=== PATIENT | male | born 1960 | race African-American/Black ===

== ENCOUNTER 2016-06-26 18:15 | Inpatient (IN) | payer OTHER ==
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
[2016-06-26 19:17] VITALS: BMI 19.8
[2016-06-26] MEDS ORDERED: MAG HYDROX/AL HYDROX/SIMETH 30 ML UNIT-DOSE CUP PO PRN (19:22)
[2016-06-26] MEDS ORDERED: MENTHOL/PHENOL 1 EACH UD MM PRN (19:22)
[2016-06-26] MEDS ORDERED: hydrOXYzine PAMOATE 50 MG CAPSULE (FP) PO PRN (19:22)
[2016-06-26] MEDS ORDERED: LOPERAMIDE HCL 2 MG CAPSULE PO PRN (19:22)
[2016-06-26] MEDS ORDERED: chlordiazePOXIDE HCL 25 MG CAPSULE PO ONE (19:22)
[2016-06-26] MEDS ORDERED: MAGNESIUM CITRATE 300 ML BOTTLE PO PRN (19:22)
[2016-06-26] MEDS ORDERED: guaiFENesin/D-METHORPHAN HB 10 ML UNIT-DOSE CUPS PO PRN (19:22)
[2016-06-26] MEDS ORDERED: ACETAMINOPHEN 325 MG TABLET (FP) PO PRN (19:22)
[2016-06-26] MEDS ORDERED: P-EPHED 60MG/TRIPROLIDI 2.5MG TABLET PO PRN (19:22)
[2016-06-26] MEDS ORDERED: MAGNESIUM HYDROX 2400MG/30ML ORAL SUSPENSION 30 ML CUP PO PRN (19:22)
[2016-06-26] MEDS ORDERED: chlordiazePOXIDE HCL 25 MG CAPSULE PO PRN (19:22)
[2016-06-26] MEDS ORDERED: IBUPROFEN 400 MG TABLET (FP) PO PRN (19:22)
[2016-06-26 22:43] LABS: URINE APPEARANCE CLEAR; URINE BILIRUBIN NEGATIVE (NEGATIVE); URINE BLOOD NEGATIVE (NEGATIVE); URINE COLOR YELLOW; URINE GLUCOSE (UA) NEGATIVE (NEGATIVE); URINE KETONE TRACE (NEGATIVE); URINE LEUK ESTERASE NEGATIVE (NEGATIVE); URINE NITRITE NEGATIVE (NEGATIVE); URINE PROTEIN NEGATIVE (NEGATIVE); URINE UROBILINOGEN 4.0 E.U/dl E.U./dl (0.2-1.0)
[2016-06-27] MEDS: THIAMINE HCL 100 MG TABLET (FP) PO SCH ×2 (00:01→22:53)
[2016-06-27] MEDS: chlordiazePOXIDE HCL 25 MG CAPSULE PO SCH ×5 (00:03→22:53)
[2016-06-27] MEDS: PRENATAL VITAMINS W/ FOLIC ACID TABLET (FP) PO SCH (10:11)
[2016-06-27 10:28] LABS: ALBUMIN 3.5 g/dl (3.4-5.0); ANION GAP 11 (8-16); CALCIUM 8.6 mg/dL (8.5-10.1); CO2 27 mmol/L (21-32); GLUCOSE,RANDOM 79 mg/dL (74-106)
[2016-06-27 10:29] LABS: MCH 27.2 pg (25.7-33.7); MCHC 32.4 g/dl (32.0-35.9); MEAN CELL VOLUME 83.8 fl (80-96); MEAN PLT VOLUME 9.7 fl (7.5-11.1); PLATELET COUNT 192 K/MM3 (134-434); RDW 15.6 % (11.9-15.9); WHITE BLOOD COUNT 4.3 K/mm3 (4.0-10.0)
[2016-06-27 10:33] LABS: ALK PHOS 44 U/L (45-117); BILIRUBIN,TOTAL 0.5 mg/dL (0.2-1.0); CREATININE 0.9 mg/dL (0.7-1.3); SGOT/AST 25 U/L (15-37); SGPT/ALT 25 U/L (12-78); TOT PROT 6.3 g/dl (6.4-8.2)
--- NOTE | 2016-06-27 12:41 | PN ---
S CIWA - CIWA Score Nausea/Vomitin Muscle Tremors: 3 Anxiety: 3 Agitation: 3 Paroxysmal Sweats: 1-Minimal Palms Moist Orientation: 0-Oriented Tacttile Disturbances: 1-Very Mild Itch/Numbness Auditory Disturbances: 1-Very Mild Visual Disturbances: 1-Very Mild Sensitivity Headache: 2-Mild CIWA-Ar Total Score: 18 BHS Progress Note (SOAP) Subjective: ALERT,IRRITABLE,ANXIOUS,INTERRUPTED SLEEP,PAIN IN THE BODY AND BACK Objective: 06/27/16 12:40 Vital Signs Temperature 97.3 F L 06/27/16 10:49 Pulse Rate 91 H 06/27/16 10:49 Respiratory Rate 16 06/27/16 10:49 Blood Pressure 106/77 06/27/16 10:49 O2 Sat by Pulse Oximetry (%) EKG NSR NO CHEST PAIN,NO SOB,NO DIZZINESS Laboratory Last Values WBC 4.3 K/mm3 (4.0-10.0) 06/27/16 07:45 RBC 4.39 M/mm3 (4.00-5.60) 06/27/16 07:45 Hgb 11.9 GM/dL (11.7-16.9) 06/27/16 07:45 Hct 36.8 % (35.4-49) 06/27/16 07:45 MCV 83.8 fl (80-96) 06/27/16 07:45 MCHC 32.4 g/dl (32.0-35.9) 06/27/16 07:45 RDW 15.6 % (11.9-15.9) 06/27/16 07:45 Plt Count 192 K/MM3 (134-434) 06/27/16 07:45 MPV 9.7 fl (7.5-11.1) 06/27/16 07:45 Sodium 143 mmol/L (136-145) 06/27/16 07:45 Potassium 3.7 mmol/L (3.5-5.1) 06/27/16 07:45 Chloride 105 mmol/L (98-107) 06/27/16 07:45 Carbon Dioxide 27 mmol/L (21-32) 06/27/16 07:45 Anion Gap 11 (8-16) 06/27/16 07:45 BUN 15 mg/dL (7-18) 06/27/16 07:45 Creatinine 0.9 mg/dL (0.7-1.3) 06/27/16 07:45 Creat Clearance w eGFR > 60 (>60) 06/27/16 07:45 Random Glucose 79 mg/dL (74-106) 06/27/16 07:45 Calcium 8.6 mg/dL (8.5-10.1) 06/27/16 07:45 Total Bilirubin 0.5 mg/dL (0.2-1.0) 06/27/16 07:45 AST 25 U/L (15-37) 06/27/16 07:45 ALT 25 U/L (12-78) 06/27/16 07:45 Alkaline Phosphatase 44 U/L (45-117) L 06/27/16 07:45 Total Protein 6.3 g/dl (6.4-8.2) L 06/27/16 07:45 Albumin 3.5 g/dl (3.4-5.0) 06/27/16 07:45 Urine Color Yellow 06/26/16 22:30 Urine Appearance Clear 06/26/16 22:30 Urine pH 5.0 (5.0-8.0) 06/26/16 22:30 Ur Specific [place] 1.032 (1.001-1.035) 06/26/16 22:30 Urine Protein Negative (NEGATIVE) 06/26/16 22:30 Urine Glucose (UA) Negative (NEGATIVE) 06/26/16 22:30 Urine Ketones Trace (NEGATIVE) H 06/26/16 22:30 Urine Blood Negative (NEGATIVE) 06/26/16 22:30 Urine Nitrite Negative (NEGATIVE) 06/26/16 22:30 Urine Bilirubin Negative (NEGATIVE) 06/26/16 22:30 Urine Urobilinogen 4.0 e.u/dl E.U./dl (0.2-1.0) 06/26/16 22:30 Ur Leukocyte Esterase Negative (NEGATIVE) 06/26/16 22:30 RPR Titer Nonreactive (NONREACTIVE) 06/27/16 07:45 Assessment: 06/27/16 12:41 WITHDRAWAL SYMPTOM Plan: CONTINUE DETOX
[2016-06-27] MEDS: CYCLOBENZAPRINE HCL 10 MG TABLET (FP) PO PRN (22:53)
[2016-06-27] MEDS: diphenhydrAMINE HCL 50 MG CAPSULE PO PRN (22:53)
[2016-06-28] MEDS: chlordiazePOXIDE HCL 25 MG CAPSULE PO SCH ×3 (06:37→17:34)
[2016-06-28] MEDS: PRENATAL VITAMINS W/ FOLIC ACID TABLET (FP) PO SCH (10:41)
--- NOTE | 2016-06-28 12:16 | PN ---
S CIWA - CIWA Score Nausea/Vomitin Muscle Tremors: 3 Anxiety: 3 Agitation: 2 Paroxysmal Sweats: 3 Orientation: 0-Oriented Tacttile Disturbances: 2-Mild Itch/Numbness/Burn Auditory Disturbances: 0-None Visual Disturbances: 0-None Headache: 0-None Present CIWA-Ar Total Score: 15 S Progress Note (SOAP) Subjective: interrupted sleep, sweats, shakes, lbp, leg pains Objective: 06/28/16 12:15 Vital Signs Temperature 98.4 F 06/28/16 11:23 Pulse Rate 74 06/28/16 11:23 Respiratory Rate 16 06/28/16 11:23 Blood Pressure 105/66 06/28/16 11:23 O2 Sat by Pulse Oximetry (%) Laboratory Tests 06/26/16 06/27/16 06/27/16 22:30 07:45 07:45 WBC 4.3 RBC 4.39 Hgb 11.9 Hct 36.8 MCV 83.8 MCHC 32.4 RDW 15.6 Plt Count 192 MPV 9.7 Sodium 143 Potassium 3.7 Chloride 105 Carbon Dioxide 27 Anion Gap 11 BUN 15 Creatinine 0.9 Creat Clearance w eGFR > 60 Random Glucose 79 Calcium 8.6 Total Bilirubin 0.5 AST 25 ALT 25 Alkaline Phosphatase 44 L Total Protein 6.3 L Albumin 3.5 Urine Color Yellow Urine Appearance Clear Urine pH 5.0 Ur Specific [place] 1.032 Urine Protein Negative Urine Glucose (UA) Negative Urine Ketones Trace H Urine Blood Negative Urine Nitrite Negative Urine Bilirubin Negative Urine Urobilinogen 4.0 e.u/dl Ur Leukocyte Esterase Negative RPR Titer 06/27/16 07:45 WBC RBC Hgb Hct MCV MCHC RDW Plt Count MPV Sodium Potassium Chloride Carbon Dioxide Anion Gap BUN Creatinine Creat Clearance w eGFR Random Glucose Calcium Total Bilirubin AST ALT Alkaline Phosphatase Total Protein Albumin Urine Color Urine Appearance Urine pH Ur Specific [place] Urine Protein Urine Glucose (UA) Urine Ketones Urine Blood Urine Nitrite Urine Bilirubin Urine Urobilinogen Ur Leukocyte Esterase RPR Titer Nonreactive pt aox3 in nad ambulating Assessment: 06/28/16 12:16 withdrawal sx;s Plan: cont. detox increase fluids motrin prn
--- NOTE | 2016-06-28 13:53 | CONSULT ---
[facility] Psychiatric Consult - Data Date of interview: 06/28/16 Admission source: [facility] Identifying data: Patient is approached for psychiatric interview.He refuses.Nursing staff is made aware.
[2016-06-28] MEDS: CYCLOBENZAPRINE HCL 10 MG TABLET (FP) PO PRN (23:09)
[2016-06-28] MEDS: THIAMINE HCL 100 MG TABLET (FP) PO SCH (23:09)
[2016-06-28] MEDS: chlordiazePOXIDE 5 MG CAPSULE PO SCH (23:09)
[2016-06-28] MEDS: diphenhydrAMINE HCL 50 MG CAPSULE PO PRN (23:09)
[2016-06-29] MEDS: chlordiazePOXIDE 5 MG CAPSULE PO SCH ×3 (05:30→17:11)
[2016-06-29] MEDS: CYCLOBENZAPRINE HCL 10 MG TABLET (FP) PO PRN ×2 (10:42→22:15)
[2016-06-29] MEDS: PRENATAL VITAMINS W/ FOLIC ACID TABLET (FP) PO SCH (10:42)
--- NOTE | 2016-06-29 11:35 | PN ---
BHS Progress Note (SOAP) Subjective: headache back pain Objective: 06/29/16 11:34 Vital Signs Temperature 96.4 F L 06/29/16 10:48 Pulse Rate 80 06/29/16 10:48 Respiratory Rate 18 06/29/16 10:48 Blood Pressure 120/75 06/29/16 10:48 O2 Sat by Pulse Oximetry (%) awake/alert ambulating no acute distress Assessment: 06/29/16 11:35 withdrawal sx Plan: continue detox increase fluids d/c in am
[2016-06-29] MEDS: THIAMINE HCL 100 MG TABLET (FP) PO SCH (22:15)
[2016-06-29] MEDS: chlordiazePOXIDE HCL 10 MG CAPSULE PO SCH (22:15)
[2016-06-29] MEDS: diphenhydrAMINE HCL 50 MG CAPSULE PO PRN (22:15)
--- NOTE | 2016-06-29 23:08 | EKG ---
Test Reason : Blood Pressure : / mmHG Vent. Rate : 071 BPM Atrial Rate : 071 BPM P-R Int : 154 ms QRS Dur : 092 ms QT Int : 388 ms P-R-T Axes : 076 074 066 degrees QTc Int : 421 ms NORMAL SINUS RHYTHM POSSIBLE LEFT ATRIAL ENLARGEMENT BORDERLINE ECG NO PREVIOUS ECGS AVAILABLE Confirmed by TONY CRUZ, ONELIA ([id number]) on 06/29/2016 11:08:00 PM Referred By: Confirmed By:ONELIA JIMENEZ MD
[2016-06-30] MEDS: chlordiazePOXIDE HCL 10 MG CAPSULE PO SCH (05:56)
[2016-06-30 06:21] VITALS: BP 109/69; PULSE 84; TEMP 97.7
--- NOTE | 2016-06-30 09:04 | DS ---
[facility] Detox Discharge Summary Admission Date: 06/26/16 Discharge Date: 06/30/16 - History Present History: Alcohol Dependence, Cocaine Dependence, Opioid Dependence - Physical Exam Results Vital Signs: Vital Signs Temperature 97.7 F 06/30/16 06:00 Pulse Rate 84 06/30/16 06:00 Respiratory Rate 18 06/30/16 06:00 Blood Pressure 109/69 06/30/16 06:00 O2 Sat by Pulse Oximetry (%) - Treatment Hospital Course: Detox Protocol Followed, Detoxed Safely, Responded well, Discharged Condition Good - Medication Discharge Medications: Ambulatory Orders Tramadol HCl [Ultram] 50 mg PO BID 06/26/16 - Diagnosis (1) Anxiety and depression Current Visit: Yes Status: Chronic (2) Alcohol dependence with withdrawal, uncomplicated Current Visit: Yes Status: Chronic (3) Depression Current Visit: Yes Status: Chronic Qualifiers: Depression Type: unspecified Qualified Code(s): F32.9 - Major depressive disorder, single episode, unspecified (4) Opiate abuse, continuous Current Visit: Yes Status: Chronic (5) Chronic low back pain Current Visit: Yes Status: Chronic Qualifiers: Back pain laterality: bilateral Sciatica laterality: bilateral sciatica (6) Cocaine dependence Current Visit: Yes Status: Chronic Qualifiers: Substance use status: uncomplicated Qualified Code(s): F14.20 - Cocaine dependence, uncomplicated (7) Nicotine dependence Current Visit: Yes Status: Chronic Qualifiers: Nicotine product type: cigarettes Substance use status: uncomplicated Qualified Code(s): F17.210 - Nicotine dependence, cigarettes, uncomplicated - AMA Did Patient Leave Against Medical Advice: No
[2016-06-30] MEDS: PRENATAL VITAMINS W/ FOLIC ACID TABLET (FP) PO SCH (09:07)
== END 2016-06-30 09:12 | disposition home or self-care (01) | DRG 773 ==
LOC: YASAS 18:15 → Y6N 18:37
PROVIDERS: ADMIT Internal Medicine; ATTEND Internal Medicine Addiction Medicine
PROC: HZ2ZZZZ Detoxification Services for Substance Abuse Treatment (ICD-10-PCS; principal; 2016-06-26)
DX: F10.230 Alcohol dependence with withdrawal, uncomplicated (principal); F11.10 Opioid abuse, uncomplicated; F14.20 Cocaine dependence, uncomplicated; F17.210 Nicotine dependence, cigarettes, uncomplicated; F41.8 Other specified anxiety disorders; F32.9 Major depressive disorder, single episode, unspecified; M54.5 Low back pain; G89.29 Other chronic pain; G47.00 Insomnia, unspecified; R76.11 Nonspecific reaction to tuberculin skin test without active tuberculosis; Z86.69 Personal history of other diseases of the nervous system and sense organs
CPT/HCPCS: 36415; 80053; 81003; 85027; 86593; 93005; 93010

== ENCOUNTER 2017-03-29 11:53 | Inpatient (IN) | payer OTHER ==
[2017-03-29 13:29] VITALS: BMI 19.1
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
[2017-03-29] MEDS ORDERED: MAGNESIUM HYDROX 2400MG/30ML ORAL SUSPENSION 30 ML CUP PO PRN (15:24)
[2017-03-29] MEDS ORDERED: MAG HYDROX/AL HYDROX/SIMETH 30 ML UNIT-DOSE CUP PO PRN (15:24)
[2017-03-29] MEDS ORDERED: hydrOXYzine PAMOATE 50 MG CAPSULE (FP) PO PRN (15:24)
[2017-03-29] MEDS ORDERED: MAGNESIUM CITRATE 300 ML BOTTLE PO PRN (15:24)
[2017-03-29] MEDS ORDERED: MENTHOL/PHENOL 1 EACH UD MM PRN (15:24)
[2017-03-29] MEDS ORDERED: IBUPROFEN 400 MG TABLET (FP) PO PRN (15:24)
[2017-03-29] MEDS ORDERED: chlordiazePOXIDE HCL 25 MG CAPSULE PO PRN (15:24)
[2017-03-29] MEDS ORDERED: P-EPHED 60MG/TRIPROLIDI 2.5MG TABLET PO PRN (15:24)
[2017-03-29] MEDS ORDERED: ACETAMINOPHEN 325 MG TABLET (FP) PO PRN (15:24)
[2017-03-29] MEDS ORDERED: LOPERAMIDE HCL 2 MG CAPSULE PO PRN (15:24)
[2017-03-29] MEDS: chlordiazePOXIDE HCL 25 MG CAPSULE PO SCH ×2 (17:44→22:08)
[2017-03-29] MEDS: THIAMINE HCL 100 MG TABLET (FP) PO SCH (22:08)
[2017-03-29] MEDS: levETIRAcetam 500 MG TABLET (FP) PO SCH (22:08)
[2017-03-29] MEDS: CYCLOBENZAPRINE HCL 10 MG TABLET (FP) PO PRN (22:08)
[2017-03-29 23:23] LABS: URINE APPEARANCE TURBID; URINE BILIRUBIN NEGATIVE (NEGATIVE); URINE BLOOD NEGATIVE (NEGATIVE); URINE COLOR AMBER; URINE GLUCOSE (UA) NEGATIVE (NEGATIVE); URINE KETONE 2+ (NEGATIVE); URINE LEUK ESTERASE NEGATIVE (NEGATIVE); URINE NITRITE NEGATIVE (NEGATIVE)
[2017-03-29 23:33] LABS: URINE PROTEIN 2+ (NEGATIVE)
[2017-03-29 23:42] LABS: EPI CELLS RARE /HPF (FEW); URINE BACTERIA RARE /hpf (NONE SEEN); URINE MUCUS MANY
[2017-03-30] MEDS: chlordiazePOXIDE HCL 25 MG CAPSULE PO SCH ×4 (06:00→22:19)
--- NOTE | 2017-03-30 09:48 | EKG ---
Test Reason : Blood Pressure : / mmHG Vent. Rate : 095 BPM Atrial Rate : 095 BPM P-R Int : 136 ms QRS Dur : 076 ms QT Int : 340 ms P-R-T Axes : 079 073 054 degrees QTc Int : 427 ms NORMAL SINUS RHYTHM NORMAL ECG WHEN COMPARED WITH ECG OF 26-JUN-2016 20:29, NO SIGNIFICANT CHANGE WAS FOUND Confirmed by MD Ambrosio Edward ([id number]) on 03/30/2017 9:48:03 AM Referred By: Confirmed By:Hernán Ambrosio MD
[2017-03-30 09:49] LABS: CHLORIDE 101 mmol/L (98-107); POTASSIUM 3.9 mmol/L (3.5-5.1); SODIUM 137 mmol/L (136-145)
[2017-03-30 09:54] LABS: HEMATOCRIT 39.2 % (35.4-49); HEMOGLOBIN 12.5 GM/dL (11.7-16.9); MCH 26.8 pg (25.7-33.7); MEAN CELL VOLUME 83.8 fl (80-96); MEAN PLT VOLUME 10.4 fl (7.5-11.1); PLATELET COUNT 207 K/MM3 (134-434); RBC 4.68 M/mm3 (4.00-5.60); RDW 14.8 % (11.9-15.9); WHITE BLOOD COUNT 10.3 K/mm3 (4.0-10.0)
[2017-03-30 10:00] LABS: ALBUMIN 3.7 g/dl (3.4-5.0); ALK PHOS 76 U/L (45-117); ANION GAP 8 (8-16); BILIRUBIN,TOTAL 0.5 mg/dL (0.2-1.0); BLOOD UREA NITROGEN 15 mg/dL (7-18); CALCIUM 9.2 mg/dL (8.5-10.1); CO2 28 mmol/L (21-32); CREATININE 1.1 mg/dL (0.7-1.3); GLUCOSE,RANDOM 110 mg/dL (74-106); SGOT/AST 19 U/L (15-37); SGPT/ALT 21 U/L (12-78); TOT PROT 7.8 g/dl (6.4-8.2)
[2017-03-30] MEDS: levETIRAcetam 500 MG TABLET (FP) PO SCH ×2 (10:15→22:19)
[2017-03-30] MEDS: PRENATAL VITAMINS W/ FOLIC ACID TABLET (FP) PO SCH (10:15)
--- NOTE | 2017-03-30 11:22 | PN ---
[facility] CIWA - CIWA Score Nausea/Vomitin-No Nausea/No Vomiting Muscle Tremors: 2 Anxiety: 4-Mod. Anxious/Guarded Agitation: 2 Paroxysmal Sweats: 3 Orientation: 0-Oriented Tacttile Disturbances: 3-Moderate Itch/Numb/Burn Auditory Disturbances: 0-None Visual Disturbances: 3-Moderate Sensitivity Headache: 0-None Present CIWA-Ar Total Score: 17 BHS Progress Note (SOAP) Subjective: Fatigue, Body Aches, Sweating, Anxious. Objective: PT. A & O X 3. NO ACUTE DISTRESS. 03/30/17 11:19 Vital Signs Temperature 97.4 F L 03/30/17 09:04 Pulse Rate 103 H 03/30/17 09:04 Respiratory Rate 20 03/30/17 09:04 Blood Pressure 106/74 03/30/17 09:04 O2 Sat by Pulse Oximetry (%) Laboratory Tests 03/29/17 03/30/17 03/30/17 21:22 06:00 06:00 WBC 10.3 H D RBC 4.68 Hgb 12.5 Hct 39.2 MCV 83.8 MCH 26.8 MCHC 32.0 RDW 14.8 Plt Count 207 MPV 10.4 Sodium 137 Potassium 3.9 Chloride 101 Carbon Dioxide 28 Anion Gap 8 BUN 15 Creatinine 1.1 D Creat Clearance w eGFR > 60 Random Glucose 110 H D Calcium 9.2 Total Bilirubin 0.5 AST 19 D ALT 21 Alkaline Phosphatase 76 D Total Protein 7.8 D Albumin 3.7 Urine Color [place] Urine Appearance Turbid Urine pH 5.0 Ur Specific [place] 1.032 Urine Protein 2+ H Urine Glucose (UA) Negative Urine Ketones 2+ H Urine Blood Negative Urine Nitrite Negative Urine Bilirubin Negative Urine Urobilinogen 2.0 Ur Leukocyte Esterase Negative Urine WBC (Auto) 3 Urine RBC (Auto) 1 Ur Epithelial Cells Rare Urine Bacteria Rare Urine Mucus Many RPR Titer 03/30/17 06:00 WBC RBC Hgb Hct MCV MCH MCHC RDW Plt Count MPV Sodium Potassium Chloride Carbon Dioxide Anion Gap BUN Creatinine Creat Clearance w eGFR Random Glucose Calcium Total Bilirubin AST ALT Alkaline Phosphatase Total Protein Albumin Urine Color Urine Appearance Urine pH Ur Specific [place] Urine Protein Urine Glucose (UA) Urine Ketones Urine Blood Urine Nitrite Urine Bilirubin Urine Urobilinogen Ur Leukocyte Esterase Urine WBC (Auto) Urine RBC (Auto) Ur Epithelial Cells Urine Bacteria Urine Mucus RPR Titer Nonreactive LABS NOTED. Assessment: 03/30/17 11:20 WITHDRAWAL SYMPTOMS. Plan: CONTINUE DETOX. INCREASE DAILY PO FLUID INTAKE. PRN FLEXERIL FOR BODY ACHES / MUSCLE SPASMS. LIDODERM PATCH FOR LOWER BACK PAIN.
[2017-03-30] MEDS: LIDOCAINE 5% TOPICAL PATCH TP SCH (13:04)
[2017-03-30] MEDS: CYCLOBENZAPRINE HCL 10 MG TABLET (FP) PO PRN (17:25)
[2017-03-30] MEDS: THIAMINE HCL 100 MG TABLET (FP) PO SCH (22:19)
[2017-03-30] MEDS: guaiFENesin/D-METHORPHAN HB 10 ML UNIT-DOSE CUPS PO PRN (22:19)
[2017-03-30] MEDS: LIDOCAINE PATCH REMOVAL MC SCH (22:22)
[2017-03-31] MEDS: chlordiazePOXIDE HCL 25 MG CAPSULE PO SCH ×2 (05:32→10:10)
[2017-03-31] MEDS: CYCLOBENZAPRINE HCL 10 MG TABLET (FP) PO PRN ×2 (05:32→22:06)
[2017-03-31] MEDS: levETIRAcetam 500 MG TABLET (FP) PO SCH ×2 (10:10→22:06)
[2017-03-31] MEDS: PRENATAL VITAMINS W/ FOLIC ACID TABLET (FP) PO SCH (10:10)
[2017-03-31] MEDS: LIDOCAINE 5% TOPICAL PATCH TP SCH (10:11)
--- NOTE | 2017-03-31 11:53 | PN ---
[facility] CIWA - CIWA Score Nausea/Vomitin-No Nausea/No Vomiting Muscle Tremors: 4-Moderate,w/Arms Extend Anxiety: 4-Mod. Anxious/Guarded Agitation: 3 Paroxysmal Sweats: 3 Orientation: 0-Oriented Tacttile Disturbances: 0-None Auditory Disturbances: 1-Very Mild Visual Disturbances: 2-Mild Sensitivity Headache: 0-None Present CIWA-Ar Total Score: 17 [facility] Progress Note (SOAP) Subjective: Tremors, Body Aches, Sweating. Objective: PT. A & O X 3, OBSERVED AMBULATING ON UNIT. NO ACUTE DISTRESS. 03/31/17 11:50 Vital Signs Temperature 97.0 F L 03/31/17 08:44 Pulse Rate 78 03/31/17 08:44 Respiratory Rate 18 03/31/17 08:44 Blood Pressure 94/68 03/31/17 08:44 O2 Sat by Pulse Oximetry (%) Laboratory Tests 03/29/17 03/30/17 03/30/17 21:22 06:00 06:00 WBC 10.3 H D RBC 4.68 Hgb 12.5 Hct 39.2 MCV 83.8 MCH 26.8 MCHC 32.0 RDW 14.8 Plt Count 207 MPV 10.4 Sodium 137 Potassium 3.9 Chloride 101 Carbon Dioxide 28 Anion Gap 8 BUN 15 Creatinine 1.1 D Creat Clearance w eGFR > 60 Random Glucose 110 H D Calcium 9.2 Total Bilirubin 0.5 AST 19 D ALT 21 Alkaline Phosphatase 76 D Total Protein 7.8 D Albumin 3.7 Urine Color Shara Urine Appearance Turbid Urine pH 5.0 Ur Specific [place] 1.032 Urine Protein 2+ H Urine Glucose (UA) Negative Urine Ketones 2+ H Urine Blood Negative Urine Nitrite Negative Urine Bilirubin Negative Urine Urobilinogen 2.0 Ur Leukocyte Esterase Negative Urine WBC (Auto) 3 Urine RBC (Auto) 1 Ur Epithelial Cells Rare Urine Bacteria Rare Urine Mucus Many RPR Titer 03/30/17 06:00 WBC RBC Hgb Hct MCV MCH MCHC RDW Plt Count MPV Sodium Potassium Chloride Carbon Dioxide Anion Gap BUN Creatinine Creat Clearance w eGFR Random Glucose Calcium Total Bilirubin AST ALT Alkaline Phosphatase Total Protein Albumin Urine Color Urine Appearance Urine pH Ur Specific [place] Urine Protein Urine Glucose (UA) Urine Ketones Urine Blood Urine Nitrite Urine Bilirubin Urine Urobilinogen Ur Leukocyte Esterase Urine WBC (Auto) Urine RBC (Auto) Ur Epithelial Cells Urine Bacteria Urine Mucus RPR Titer Nonreactive LABS NOTED. Assessment: 03/31/17 11:51 WITHDRAWAL SYMPTOMS. Plan: CONTINUE DETOX. REPEAT UA FOR ADMISSION ABNORMALITIES. INCREASE DAILY PO FLUID INTAKE.
[2017-03-31] MEDS: chlordiazePOXIDE 5 MG CAPSULE PO SCH ×2 (17:28→22:06)
[2017-03-31] MEDS: THIAMINE HCL 100 MG TABLET (FP) PO SCH (22:06)
[2017-03-31] MEDS: LIDOCAINE PATCH REMOVAL MC SCH (22:08)
[2017-03-31 23:42] LABS: URINE APPEARANCE CLEAR; URINE BILIRUBIN NEGATIVE (NEGATIVE); URINE BLOOD NEGATIVE (NEGATIVE); URINE COLOR LTYELLOW; URINE GLUCOSE (UA) NEGATIVE (NEGATIVE); URINE KETONE NEGATIVE (NEGATIVE); URINE LEUK ESTERASE NEGATIVE (NEGATIVE); URINE NITRITE NEGATIVE (NEGATIVE); URINE PROTEIN NEGATIVE (NEGATIVE); URINE UROBILINOGEN NEGATIVE mg/dL (0.2-1.0)
[2017-04-01] MEDS: chlordiazePOXIDE 5 MG CAPSULE PO SCH ×2 (05:45→10:19)
[2017-04-01] MEDS: levETIRAcetam 500 MG TABLET (FP) PO SCH ×2 (10:19→22:24)
[2017-04-01] MEDS: PRENATAL VITAMINS W/ FOLIC ACID TABLET (FP) PO SCH (10:19)
[2017-04-01] MEDS: LIDOCAINE 5% TOPICAL PATCH TP SCH (10:20)
--- NOTE | 2017-04-01 10:22 | PN ---
[facility] Progress Note (SOAP) Subjective: DECREASED ANXIETY,C/O COUGHING, INTERMITTENT SLEEP. Objective: 04/01/17 10:22 Vital Signs Temperature 97.0 F L 04/01/17 09:16 Pulse Rate 81 04/01/17 09:16 Respiratory Rate 18 04/01/17 09:16 Blood Pressure 95/62 04/01/17 09:16 O2 Sat by Pulse Oximetry (%) Laboratory Last Values WBC 10.3 K/mm3 (4.0-10.0) H D 03/30/17 06:00 RBC 4.68 M/mm3 (4.00-5.60) 03/30/17 06:00 Hgb 12.5 GM/dL (11.7-16.9) 03/30/17 06:00 Hct 39.2 % (35.4-49) 03/30/17 06:00 MCV 83.8 fl (80-96) 03/30/17 06:00 MCH 26.8 pg (25.7-33.7) 03/30/17 06:00 MCHC 32.0 g/dl (32.0-35.9) 03/30/17 06:00 RDW 14.8 % (11.9-15.9) 03/30/17 06:00 Plt Count 207 K/MM3 (134-434) 03/30/17 06:00 MPV 10.4 fl (7.5-11.1) 03/30/17 06:00 Sodium 137 mmol/L (136-145) 03/30/17 06:00 Potassium 3.9 mmol/L (3.5-5.1) 03/30/17 06:00 Chloride 101 mmol/L (98-107) 03/30/17 06:00 Carbon Dioxide 28 mmol/L (21-32) 03/30/17 06:00 Anion Gap 8 (8-16) 03/30/17 06:00 BUN 15 mg/dL (7-18) 03/30/17 06:00 Creatinine 1.1 mg/dL (0.7-1.3) D 03/30/17 06:00 Creat Clearance w eGFR > 60 (>60) 03/30/17 06:00 Random Glucose 110 mg/dL (74-106) H D 03/30/17 06:00 Calcium 9.2 mg/dL (8.5-10.1) 03/30/17 06:00 Total Bilirubin 0.5 mg/dL (0.2-1.0) 03/30/17 06:00 AST 19 U/L (15-37) D 03/30/17 06:00 ALT 21 U/L (12-78) 03/30/17 06:00 Alkaline Phosphatase 76 U/L (45-117) D 03/30/17 06:00 Total Protein 7.8 g/dl (6.4-8.2) D 03/30/17 06:00 Albumin 3.7 g/dl (3.4-5.0) 03/30/17 06:00 Urine Color Ltyellow 03/31/17 23:35 Urine Appearance Clear 03/31/17 23:35 Urine pH 8.0 (5.0-8.0) D 03/31/17 23:35 Ur Specific [place] 1.010 (1.001-1.035) 03/31/17 23:35 Urine Protein Negative (NEGATIVE) 03/31/17 23:35 Urine Glucose (UA) Negative (NEGATIVE) 03/31/17 23:35 Urine Ketones Negative (NEGATIVE) 03/31/17 23:35 Urine Blood Negative (NEGATIVE) 03/31/17 23:35 Urine Nitrite Negative (NEGATIVE) 03/31/17 23:35 Urine Bilirubin Negative (NEGATIVE) 03/31/17 23:35 Urine Urobilinogen Negative mg/dL (0.2-1.0) 03/31/17 23:35 Ur Leukocyte Esterase Negative (NEGATIVE) 03/29/17 21:22 Urine WBC (Auto) 3 /hpf (3-5) 03/29/17 21:22 Urine RBC (Auto) 1 /hpf (0-3) 03/29/17 21:22 Ur Epithelial Cells Rare /HPF (FEW) 03/29/17 21:22 Urine Bacteria Rare /hpf (NONE SEEN) 03/29/17 21:22 Urine Mucus Many 03/29/17 21:22 RPR Titer Nonreactive (NONREACTIVE) 03/30/17 06:00 Assessment: 04/01/17 10:22 WITHDRAWAL SX Plan: CONTINUE DETOX ROBITUSSIN DM DIRECTED.
[2017-04-01] MEDS: chlordiazePOXIDE HCL 10 MG CAPSULE PO SCH ×2 (17:38→22:24)
[2017-04-01] MEDS: guaiFENesin/D-METHORPHAN HB 10 ML UNIT-DOSE CUPS PO PRN (17:39)
[2017-04-01] MEDS: THIAMINE HCL 100 MG TABLET (FP) PO SCH (22:24)
[2017-04-01] MEDS: CYCLOBENZAPRINE HCL 10 MG TABLET (FP) PO PRN (22:24)
[2017-04-01] MEDS: LIDOCAINE PATCH REMOVAL MC SCH (22:27)
[2017-04-02] MEDS: chlordiazePOXIDE HCL 10 MG CAPSULE PO SCH (06:19)
[2017-04-02 10:03] VITALS: BP 110/75; PULSE 93; TEMP 97.6
[2017-04-02] MEDS: PRENATAL VITAMINS W/ FOLIC ACID TABLET (FP) PO SCH (10:10)
[2017-04-02] MEDS: levETIRAcetam 500 MG TABLET (FP) PO SCH (10:10)
[2017-04-02] MEDS: LIDOCAINE 5% TOPICAL PATCH TP SCH (10:10)
--- NOTE | 2017-04-02 11:03 | DS ---
[facility] Detox Discharge Summary Admission Date: 03/29/17 Discharge Date: 04/02/17 - History Present History: Alcohol Dependence, Cannabis Dependence, Cocaine Dependence, Sedative Dependence Pertinent Past History: Chronic back pain, neck surgery, seizure disorder - Physical Exam Results Vital Signs: Vital Signs Temperature 97.6 F 04/02/17 10:00 Pulse Rate 93 H 04/02/17 10:00 Respiratory Rate 18 04/02/17 10:00 Blood Pressure 110/75 04/02/17 10:00 O2 Sat by Pulse Oximetry (%) Pertinent Admission Physical Exam Findings: Withdrawal sx Laboratory Last Values WBC 10.3 K/mm3 (4.0-10.0) H D 03/30/17 06:00 RBC 4.68 M/mm3 (4.00-5.60) 03/30/17 06:00 Hgb 12.5 GM/dL (11.7-16.9) 03/30/17 06:00 Hct 39.2 % (35.4-49) 03/30/17 06:00 MCV 83.8 fl (80-96) 03/30/17 06:00 MCH 26.8 pg (25.7-33.7) 03/30/17 06:00 MCHC 32.0 g/dl (32.0-35.9) 03/30/17 06:00 RDW 14.8 % (11.9-15.9) 03/30/17 06:00 Plt Count 207 K/MM3 (134-434) 03/30/17 06:00 MPV 10.4 fl (7.5-11.1) 03/30/17 06:00 Sodium 137 mmol/L (136-145) 03/30/17 06:00 Potassium 3.9 mmol/L (3.5-5.1) 03/30/17 06:00 Chloride 101 mmol/L (98-107) 03/30/17 06:00 Carbon Dioxide 28 mmol/L (21-32) 03/30/17 06:00 Anion Gap 8 (8-16) 03/30/17 06:00 BUN 15 mg/dL (7-18) 03/30/17 06:00 Creatinine 1.1 mg/dL (0.7-1.3) D 03/30/17 06:00 Creat Clearance w eGFR > 60 (>60) 03/30/17 06:00 Random Glucose 110 mg/dL (74-106) H D 03/30/17 06:00 Calcium 9.2 mg/dL (8.5-10.1) 03/30/17 06:00 Total Bilirubin 0.5 mg/dL (0.2-1.0) 03/30/17 06:00 AST 19 U/L (15-37) D 03/30/17 06:00 ALT 21 U/L (12-78) 03/30/17 06:00 Alkaline Phosphatase 76 U/L (45-117) D 03/30/17 06:00 Total Protein 7.8 g/dl (6.4-8.2) D 03/30/17 06:00 Albumin 3.7 g/dl (3.4-5.0) 03/30/17 06:00 Urine Color Ltyellow 03/31/17 23:35 Urine Appearance Clear 03/31/17 23:35 Urine pH 8.0 (5.0-8.0) D 03/31/17 23:35 Ur Specific [place] 1.010 (1.001-1.035) 03/31/17 23:35 Urine Protein Negative (NEGATIVE) 03/31/17 23:35 Urine Glucose (UA) Negative (NEGATIVE) 03/31/17 23:35 Urine Ketones Negative (NEGATIVE) 03/31/17 23:35 Urine Blood Negative (NEGATIVE) 03/31/17 23:35 Urine Nitrite Negative (NEGATIVE) 03/31/17 23:35 Urine Bilirubin Negative (NEGATIVE) 03/31/17 23:35 Urine Urobilinogen Negative mg/dL (0.2-1.0) 03/31/17 23:35 Ur Leukocyte Esterase Negative (NEGATIVE) 03/29/17 21:22 Urine WBC (Auto) 3 /hpf (3-5) 03/29/17 21:22 Urine RBC (Auto) 1 /hpf (0-3) 03/29/17 21:22 Ur Epithelial Cells Rare /HPF (FEW) 03/29/17 21:22 Urine Bacteria Rare /hpf (NONE SEEN) 03/29/17 21:22 Urine Mucus Many 03/29/17 21:22 RPR Titer Nonreactive (NONREACTIVE) 03/30/17 06:00 Labs noted - Treatment Hospital Course: Detox Protocol Followed, Detoxed Safely, Responded well, Discharged Condition Good - Medication Discharge Medications: Ambulatory Orders Levetiracetam [Keppra -] 500 mg PO BID 03/29/17 Tramadol HCl [Ultram] 50 mg PO Q8H PRN 03/29/17 - Diagnosis (1) Alcohol dependence with withdrawal, uncomplicated Current Visit: Yes Status: Acute (2) Cannabis dependence, uncomplicated Current Visit: Yes Status: Acute (3) Chronic low back pain Current Visit: Yes Status: Chronic Qualifiers: Back pain laterality: bilateral Sciatica laterality: bilateral sciatica (4) Nicotine dependence Current Visit: Yes Status: Chronic Qualifiers: Nicotine product type: cigarettes Substance use status: in withdrawal Qualified Code(s): F17.213 - Nicotine dependence, cigarettes, with withdrawal (5) Insomnia Current Visit: No Status: Acute (6) Anxiety and depression Current Visit: No Status: Chronic (7) Depression Current Visit: No Status: Chronic Qualifiers: Depression Type: unspecified Qualified Code(s): F32.9 - Major depressive disorder, single episode, unspecified - AMA Did Patient Leave Against Medical Advice: No
== END 2017-04-02 11:39 | disposition home or self-care (01) | DRG 774 ==
LOC: YASAS 11:53 → Y3N 15:41
PROVIDERS: ADMIT Internal Medicine; ATTEND Internal Medicine
PROC: HZ2ZZZZ Detoxification Services for Substance Abuse Treatment (ICD-10-PCS; principal; 2017-03-29)
DX: F10.230 Alcohol dependence with withdrawal, uncomplicated (principal); F14.20 Cocaine dependence, uncomplicated; F12.20 Cannabis dependence, uncomplicated; F17.210 Nicotine dependence, cigarettes, uncomplicated; F41.8 Other specified anxiety disorders; F31.9 Bipolar disorder, unspecified; F13.20 Sedative, hypnotic or anxiolytic dependence, uncomplicated; M54.42 Lumbago with sciatica, left side; M54.41 Lumbago with sciatica, right side; R76.11 Nonspecific reaction to tuberculin skin test without active tuberculosis
CPT/HCPCS: 36415; 71046-TC; 80053; 81003; 81015; 85027; 86593; 93005; 93010